=== PATIENT | female | born 1970 | race African-American/Black ===

== ENCOUNTER 2022-10-08 09:30 | Outpatient (RCR) | payer OTHER, SELFPAY ==
[2022-09-09 08:25] VITALS: BMI 32.9
[2022-09-09 08:27] VITALS: BMI 32.9
[2022-10-08 10:10] VITALS: BMI 32.9
== END 2022-11-23 12:34 | disposition home or self-care (01) ==
LOC: ANHDMC 09:30
DX: E66.8 Other obesity (principal); Z68.33 Body mass index [BMI] 33.0-33.9, adult; Z71.3 Dietary counseling and surveillance
CPT/HCPCS: 97802; 97803